=== PATIENT | female | born 1985 | race Two or more races ===

== ENCOUNTER 2018-06-11 12:16 | Emergency (ER) | payer MEDICAID ==
[~2018-06-11] VITALS: Ht 167.6 cm; Wt 65.7 kg
--- NOTE | 2018-06-11 14:10 | NUR ---
us in prog
--- NOTE | 2018-06-11 15:06 | NUR ---
US RESULTS AND POC REVIEWED BY ROB SANCHEZ WITH PT.
[2018-06-11 15:07] VITALS: BP 113/66
--- NOTE | 2018-06-11 15:29 | NUR ---
PT GIVEN DC INSTRUCTIONS AND SCRIPT. PT EDUCATED REGARDING KEFLEX RX. PT A&O, RESPS EVEN AND UNLABORED. PT AMB TO DC DESK WITH STEADY GAIT. NADN AT DC.
== END 2018-06-11 15:30 | disposition home or self-care (01) ==
LOC: ED 15:20
DX: I80.8 Phlebitis and thrombophlebitis of other sites (principal)
CPT/HCPCS: 99284

== ENCOUNTER 2018-07-09 18:21 | Emergency (ER) | payer MEDICAID ==
[~2018-07-09] VITALS: Ht 167.6 cm; Wt 65.2 kg
--- NOTE | 2018-07-09 18:43 | NUR ---
PATIENT PRESENTS TO ED TODAY FOR WEIGHT LOSS AND RT WRIST PAIN/LUMP. FAMILY AT BEDSIDE, CALL LIGHT WITHIN REACH. AWAITING MD ORDERS AT THIS TIME.
[2018-07-09] MEDS ORDERED: ACYC-57 PO (18:49)
[2018-07-09] MEDS ORDERED: OMEP10CA4 PO (18:49)
[2018-07-09] MEDS ORDERED: MULT-308 PO (18:50)
[2018-07-09 19:48] LABS: BASOPHILS # (AUTO) 0.03 x10^3/uL (0-0.1); BASOPHILS % (AUTO) 0 % (0-1); EOSINOPHILS # (AUTO) 0.21 x10^3/uL (0-0.4); EOSINOPHILS % (AUTO) 2 % (1-7); LYMPHOCYTES # (AUTO) 2.95 x10^3/uL (1-3.4); LYMPHOCYTES % (AUTO) 33 % (22-44); MD NO; MEAN CORPUSCULAR HEMOGLOBIN 28.5 pg (27.0-34.8); MEAN CORPUSCULAR HGB CONC 32.9 g/dL (32.4-35.8); MEAN CORPUSCULAR VOLUME 86.6 fL (80-100); MEAN PLATELET VOLUME 8.4 fL (7.4-10.4); MONOCYTES # (AUTO) 0.58 x10^3/uL (0.2-0.8); MONOCYTES % (AUTO) 7 % (2-9); NEUTROPHILS # (AUTO) 5.07 x10^3/uL (1.8-6.8); NEUTROPHILS % (AUTO) 57 % (42-75); PLATELET COUNT 360 x10^3/uL (130-400); RED BLOOD COUNT 4.73 x10^6/uL (3.82-5.3); RED CELL DISTRIBUTION WIDTH 13.4 % (9.6-15.2)
[2018-07-09 19:52] LABS: ANION GAP 12 mmol/L (5-15); CHLORIDE 111 mmol/L (98-107); CREATININE 0.85 mg/dL (0.55-1.02)
--- NOTE | 2018-07-09 19:58 | NUR ---
RESULTS BACK, CHART UP FOR RECHECK.
== END 2018-07-09 20:14 | disposition home or self-care (01) ==
LOC: ED 20:08
DX: R63.4 Abnormal weight loss (principal)
CPT/HCPCS: 36415; 80048; 85025; 99283

== ENCOUNTER 2018-08-06 17:46 | Emergency (ER) | payer MEDICAID ==
[~2018-08-06] VITALS: Ht 167.6 cm; Wt 67.9 kg
[~2018-08-06 17:46] MED LIST: ACYC-57 PO; MULT-308 PO; OMEP10CA4 PO
[2018-08-06 17:59] VITALS: BP 128/84
== END 2018-08-06 20:08 | disposition home or self-care (01) ==
LOC: ED 18:41
DX: L72.3 Sebaceous cyst (principal); N81.10 Cystocele, unspecified
CPT/HCPCS: 76857; 99284

== ENCOUNTER 2019-05-16 16:50 | Emergency (ER) | payer SELFPAY ==
[~2019-05-16] VITALS: Ht 167.6 cm; Wt 76.2 kg
[~2019-05-16 16:50] MED LIST changes: -OMEP10CA4 PO; +OMEP10CA5 PO
[2019-05-16 16:57] VITALS: BP 154/69
--- NOTE | 2019-05-16 17:05 | NUR ---
pa-c is evaluating in triage.
== END 2019-05-16 17:50 | disposition home or self-care (01) ==
LOC: ED 17:27
DX: K04.7 Periapical abscess without sinus (principal); K02.9 Dental caries, unspecified
CPT/HCPCS: 99283

== ENCOUNTER 2020-04-27 11:47 | Emergency (ER) | payer MEDICAID ==
[~2020-04-27] VITALS: Ht 167.6 cm; Wt 65.0 kg
--- NOTE | 2020-04-27 12:01 | NUR ---
EKG IN TRIAGE
--- NOTE | 2020-04-27 12:32 | NUR ---
PT IS A 34F COMPLAINING OF AN EPISODE OF DIZZINESS AROUND 10:30 THIS MORNING LASTING A COUPLE OF SECONDS. SHE DENIES SYNCOPE, N/V. THIS HAS HAPPENED TO HER ONCE YEARS AGO. SPOUSE AT BEDSIDE. BP, SP02 MONITORS IN PLACE. NADN. CALL LIGHT WITHIN REACH.
[2020-04-27 13:20] LABS: BASOPHILS % (AUTO) 1 % (0-1); EOSINOPHILS % (AUTO) 1 % (1-7); LYMPHOCYTES % (AUTO) 30 % (22-44); MEAN CORPUSCULAR HEMOGLOBIN 28.7 pg (27.0-34.8); MEAN CORPUSCULAR HGB CONC 33.4 g/dL (32.4-35.8); MEAN PLATELET VOLUME 8.1 fL (7.4-10.4); MONOCYTES % (AUTO) 4 % (2-9); NEUTROPHILS % (AUTO) 64 % (42-75); PLATELET COUNT 328 x10^3/uL (130-400); RED BLOOD COUNT 4.49 x10^6/uL (3.82-5.3); RED CELL DISTRIBUTION WIDTH 13.7 % (9.6-15.2)
[2020-04-27 13:23] VITALS: BP 105/63
[2020-04-27 13:23] LABS: MD NO
--- NOTE | 2020-04-27 13:23 | NUR ---
PT RESTING COMFORTABLY WATCHING TV. CALL LIGHT IN REACH. NADN, NO DIZZINESS NOTED.
[2020-04-27 13:32] LABS: ALBUMIN 3.6 g/dL (3.4-5.0); ANION GAP 5 mmol/L (5-15); CALCIUM 8.5 mg/dL (8.5-10.1); CHLORIDE 106 mmol/L (98-107)
[2020-04-27 13:37] LABS: CREATININE 0.88 mg/dL (0.55-1.02)
--- NOTE | 2020-04-27 13:50 | NUR ---
Patient/Caregiver given discharge instructions and they have confirmed that they understand the instructions. Patient ambulatory with steady gait.
== END 2020-04-27 13:51 | disposition home or self-care (01) ==
LOC: ED 13:45
DX: R42 Dizziness and giddiness (principal)
CPT/HCPCS: 36415; 80048; 82040; 84703; 85025; 93005; 99284

== ENCOUNTER 2020-05-17 11:12 | Emergency (ER) | payer MEDICAID ==
[~2020-05-17] VITALS: Ht 167.6 cm; Wt 66.0 kg
--- NOTE | 2020-05-17 11:31 | NUR ---
PT AMBULATED TO ROOM FROM TRIAGE. PT CO LOWER ABD PAIN/CRAMPING SINCE THIS MORNING. PT DENIES ANY CHANGES IN BM, PAINFUL URINATION, BLOOD IN URINE, FEVER, VOMITING OR VAGINAL BLEEDING.
[2020-05-17 11:52] LABS: BASOPHILS % (AUTO) 1 % (0-1); EOSINOPHILS % (AUTO) 1 % (1-7); LYMPHOCYTES % (AUTO) 28 % (22-44); MEAN CORPUSCULAR HEMOGLOBIN 29.2 pg (27.0-34.8); MEAN CORPUSCULAR HGB CONC 33.5 g/dL (32.4-35.8); MONOCYTES % (AUTO) 5 % (2-9); NEUTROPHILS % (AUTO) 65 % (42-75); PLATELET COUNT 361 x10^3/uL (130-400); RED BLOOD COUNT 4.42 x10^6/uL (3.82-5.3); RED CELL DISTRIBUTION WIDTH 13.8 % (9.6-15.2)
[2020-05-17 11:53] LABS: MD NO
[2020-05-17] MEDS ORDERED: ACETAMINOPHEN 325 MG TABLET PO ONE (12:00)
[2020-05-17 12:01] LABS: MICROSCOPIC NOT IND
[2020-05-17 12:01] LABS: ALBUMIN 3.8 g/dL (3.4-5.0); ANION GAP 4 mmol/L (5-15); CHLORIDE 109 mmol/L (98-107)
[2020-05-17] MEDS ORDERED: ACETAMINOPHEN 325 MG TABLET ONE (12:02)
[2020-05-17 12:19] VITALS: BP 121/67
--- NOTE | 2020-05-17 12:19 | NUR ---
PT RESTING COMFORTABLY IN BED. CALL LIGHT WITHIN REACH.
--- NOTE | 2020-05-17 13:17 | NUR ---
DISCHARGE INSTRUCTIONS REVIEWED WITH PT. ALL QUESTIONS ANSWERED AT THIS TIME
== END 2020-05-17 13:21 | disposition home or self-care (01) ==
LOC: ED 12:50
DX: O26.891 Other specified pregnancy related conditions, first trimester (principal); R10.2 Pelvic and perineal pain; Z3A.01 Less than 8 weeks gestation of pregnancy
CPT/HCPCS: 36415; 76830; 80048; 81003; 82040; 84702; 84703; 85025; 99284

== ENCOUNTER 2020-05-25 17:56 | Emergency (ER) | payer MEDICAID ==
[~2020-05-25] VITALS: Ht 167.6 cm; Wt 69.3 kg
[2020-05-25 18:41] VITALS: BP 93/56
== END 2020-05-25 19:49 | disposition home or self-care (01) ==
LOC: ED 19:05
DX: O26.891 Other specified pregnancy related conditions, first trimester (principal); R10.2 Pelvic and perineal pain; Z3A.01 Less than 8 weeks gestation of pregnancy
CPT/HCPCS: 36415; 76801; 84702; 99284

== ENCOUNTER 2020-06-05 09:58 | Emergency (ER) | payer MEDICAID ==
[~2020-06-05] VITALS: Ht 167.6 cm; Wt 69.1 kg
--- NOTE | 2020-06-05 10:33 | NUR ---
Pt arrived with complaints of upper abdominal cramping that has been occuring intermittently since 6am this morning. Pt denies discharge and bleeding, states that the cramping feels like period cramps. Connected to BP and O2 monitors, positioned for comfort, UA provided, AUBREYN, VSS.
[2020-06-05 12:00] VITALS: BP 104/58
[2020-06-05 12:36] LABS: BASOPHILS % (AUTO) 1 % (0-1); EOSINOPHILS % (AUTO) 1 % (1-7); LYMPHOCYTES % (AUTO) 28 % (22-44); MEAN CORPUSCULAR HEMOGLOBIN 28.4 pg (27.0-34.8); MEAN CORPUSCULAR HGB CONC 32.8 g/dL (32.4-35.8); MEAN PLATELET VOLUME 7.9 fL (7.4-10.4); MONOCYTES % (AUTO) 5 % (2-9); NEUTROPHILS % (AUTO) 66 % (42-75); PLATELET COUNT 353 x10^3/uL (130-400); RED BLOOD COUNT 4.06 x10^6/uL (3.82-5.3); RED CELL DISTRIBUTION WIDTH 13.5 % (9.6-15.2)
[2020-06-05 12:46] LABS: MD NO
[2020-06-05 12:51] LABS: ALANINE AMINOTRANSFERASE 19 U/L (12-78); ALBUMIN 3.3 g/dL (3.4-5.0); ANION GAP 5 mmol/L (5-15); CALCIUM 8.5 mg/dL (8.5-10.1); CHLORIDE 109 mmol/L (98-107); CREATININE 0.65 mg/dL (0.55-1.02)
[2020-06-05] MEDS ORDERED: ONDANSETRON ODT 4 MG PO ONE (13:00)
[2020-06-05] MEDS ORDERED: ONDANSETRON ODT 4 MG ONE (13:00)
[2020-06-05 13:08] LABS: ALKALINE PHOSPHATASE 42 U/L (45-117); BILIRUBIN,TOTAL 0.2 mg/dL (0.2-1.0); TOTAL PROTEIN 6.6 g/dL (6.4-8.2)
--- NOTE | 2020-06-05 13:30 | NUR ---
ERP TO BEDSIDE TO REVIEW POC- TEACH BACK SOMEWHAT SUCCESSFUL (NOT RETAINING) [employer] ATTEMPTED X 3 TO ASSURE PROVIDED WITH RESOURCES
== END 2020-06-05 13:34 | disposition home or self-care (01) ==
LOC: ED 11:53
DX: O26.891 Other specified pregnancy related conditions, first trimester (principal); R10.13 Epigastric pain; Z3A.08 8 weeks gestation of pregnancy
CPT/HCPCS: 36415; 76801; 80053; 83690; 84702; 85025; 99284; Q0162

== ENCOUNTER 2020-06-23 15:16 | Emergency (ER) | payer MEDICAID ==
[~2020-06-23] VITALS: Ht 167.6 cm; Wt 86.8 kg
[2020-06-23 16:10] LABS: BASOPHILS % (AUTO) 1 % (0-1); EOSINOPHILS % (AUTO) 1 % (1-7); LYMPHOCYTES % (AUTO) 35 % (22-44); MEAN CORPUSCULAR HEMOGLOBIN 28.1 pg (27.0-34.8); MEAN CORPUSCULAR HGB CONC 32.4 g/dL (32.4-35.8); MEAN PLATELET VOLUME 7.9 fL (7.4-10.4); MONOCYTES % (AUTO) 7 % (2-9); NEUTROPHILS % (AUTO) 57 % (42-75); PLATELET COUNT 368 x10^3/uL (130-400); RED BLOOD COUNT 4.42 x10^6/uL (3.82-5.3); RED CELL DISTRIBUTION WIDTH 13.6 % (9.6-15.2)
[2020-06-23 16:14] LABS: MD NO
[2020-06-23 16:20] LABS: ALANINE AMINOTRANSFERASE 21 U/L (12-78); ALBUMIN 3.8 g/dL (3.4-5.0); ANION GAP 5 mmol/L (5-15); CALCIUM 8.5 mg/dL (8.5-10.1); CHLORIDE 110 mmol/L (98-107); CREATININE 0.75 mg/dL (0.55-1.02)
[2020-06-23] MEDS ORDERED: SODIUM CHLORIDE 0.9% 1,000ML IVBOLUS ONE (16:30)
[2020-06-23 16:36] LABS: ALKALINE PHOSPHATASE 49 U/L (45-117); BILIRUBIN,TOTAL 0.2 mg/dL (0.2-1.0); TOTAL PROTEIN 7.6 g/dL (6.4-8.2)
--- NOTE | 2020-06-23 16:53 | NUR ---
PT BIB SELF VIA POV WITH DAUGHTER. PER PT SHE WAS SEEN AT [facility] FRIDAY, DX WITH MISCARRIAGE. PT STATES SHE HAS HAD DIZZINESS TODAY, AND SHE IS CONCERNED ABOUT HAVING RETAINED PRODUCTS. PER PT SHE HAS BEEN HAVING VAGINAL BLEEDING SINCE FRIDAY AND HAS GONE THROUGH THREE PADS/HR TODAY. PT RESTING IN [facility], MONITORING IN PLACE, PADMA AT THIS TIME, PT'S DAUGHTER AT BEDSIDE, PT MEDICATED PER DAISHA CROCKER.
[2020-06-23 17:04] LABS: MICROSCOPIC NOT IND
[2020-06-23] MEDS ORDERED: MISOPROSTOL 200 MCG TABLET PR ONE (18:30)
--- NOTE | 2020-06-23 19:29 | NUR ---
REQUESTED MEDS FROM PHARMACY.
[2020-06-23 19:52] VITALS: BP 111/78
== END 2020-06-23 19:56 | disposition home or self-care (01) ==
LOC: ED 15:40
DX: O03.4 Incomplete spontaneous abortion without complication (principal); Z32.01 Encounter for pregnancy test, result positive; R94.31 Abnormal electrocardiogram [ECG] [EKG]
CPT/HCPCS: 36415; 76801; 80053; 81003; 84702; 85025; 86901; 93005; 96360; 99285; J7030

== ENCOUNTER 2020-10-03 08:29 | Emergency (ER) | payer MEDICAID ==
[~2020-10-03] VITALS: Ht 165.1 cm; Wt 65.7 kg
--- NOTE | 2020-10-03 09:04 | NUR ---
DR HEWITT BEDSIDE
--- NOTE | 2020-10-03 09:06 | NUR ---
PT MISSED PERIOD. PT C/O DIZZINESS AND NAUSEA. PT DENIES VAGINAL BLEEDIG OR CRAMPING. PT WANTING TO CONFIRM PREGANCY AND MAKE SURE SHE IS OK.
--- NOTE | 2020-10-03 09:11 | NUR ---
PT URINE COLLECTED AND SENT TO LAB
[2020-10-03 09:28] LABS: MICROSCOPIC NOT IND
[2020-10-03 09:38] LABS: BASOPHILS % (AUTO) 0 % (0-1); EOSINOPHILS % (AUTO) 1 % (1-7); LYMPHOCYTES % (AUTO) 27 % (22-44); MEAN CORPUSCULAR HEMOGLOBIN 28.8 pg (27.0-34.8); MEAN CORPUSCULAR HGB CONC 33.3 g/dL (32.4-35.8); MEAN PLATELET VOLUME 8.1 fL (7.4-10.4); MONOCYTES % (AUTO) 6 % (2-9); NEUTROPHILS % (AUTO) 66 % (42-75); PLATELET COUNT 326 x10^3/uL (130-400); RED BLOOD COUNT 4.38 x10^6/uL (3.82-5.3); RED CELL DISTRIBUTION WIDTH 14.2 % (9.6-15.2)
[2020-10-03 09:49] LABS: ALBUMIN 3.7 g/dL (3.4-5.0); ANION GAP 10 mmol/L (5-15); CALCIUM 8.8 mg/dL (8.5-10.1); CHLORIDE 108 mmol/L (98-107); CREATININE 0.72 mg/dL (0.55-1.02)
[2020-10-03] MEDS ORDERED: ONDANSETRON ODT 4 MG ONE (11:15)
[2020-10-03 11:49] VITALS: BP 117/73
--- NOTE | 2020-10-03 11:50 | NUR ---
PT REC'VD DISCHARGE INSTRUCTIONS AND EDUCATION. PT HAD NO FURTHER QUESTIONS.
--- NOTE | 2020-10-03 11:53 | NUR ---
PT AMBULATED TO MT AREA, STEADY GAIT.
[2020-10-03] MEDS ORDERED: ONDANSETRON ODT 4 MG PO ONE (12:00)
== END 2020-10-03 12:03 | disposition home or self-care (01) ==
LOC: ED 09:31
DX: O46.91 Antepartum hemorrhage, unspecified, first trimester (principal); R11.2 Nausea with vomiting, unspecified; R42 Dizziness and giddiness; Z3A.01 Less than 8 weeks gestation of pregnancy
CPT/HCPCS: 36415; 76801; 80048; 81003; 82040; 84702; 85025; 99284; Q0162

== ENCOUNTER 2020-10-18 10:40 | Emergency (ER) | payer MEDICAID ==
--- NOTE | 2020-10-18 11:10 | NUR ---
ATTEMPT TO CALL PT FROM LOBBY TO TRIAGE. PT NIL X 1.
--- NOTE | 2020-10-18 11:21 | NUR ---
NO ANSWER TO TRIAGE.
--- NOTE | 2020-10-18 11:23 | NUR ---
BALE STACKER: PT LEFT AMA, PAPER NATHALIA
== END 2020-10-18 11:25 | disposition left against medical advice (07) ==
LOC: ED 11:20
DX: R10.9 Unspecified abdominal pain (principal); Z53.21 Procedure and treatment not carried out due to patient leaving prior to being seen by health care provider

== ENCOUNTER 2020-10-19 09:42 | Emergency (ER) | payer MEDICAID ==
[~2020-10-19] VITALS: Ht 167.6 cm; Wt 65.9 kg
[2020-10-19 10:04] VITALS: BP 117/65
[2020-10-19 10:45] LABS: BASOPHILS % (AUTO) 1 % (0-1); EOSINOPHILS % (AUTO) 2 % (1-7); LYMPHOCYTES % (AUTO) 29 % (22-44); MEAN CORPUSCULAR HEMOGLOBIN 28.6 pg (27.0-34.8); MEAN CORPUSCULAR HGB CONC 32.9 g/dL (32.4-35.8); MEAN PLATELET VOLUME 8.1 fL (7.4-10.4); MONOCYTES % (AUTO) 8 % (2-9); NEUTROPHILS % (AUTO) 61 % (42-75); PLATELET COUNT 360 x10^3/uL (130-400); RED BLOOD COUNT 4.41 x10^6/uL (3.82-5.3); RED CELL DISTRIBUTION WIDTH 13.8 % (9.6-15.2)
[2020-10-19 10:50] LABS: ALANINE AMINOTRANSFERASE 19 U/L (12-78); ALBUMIN 3.8 g/dL (3.4-5.0); ANION GAP 9 mmol/L (5-15); CALCIUM 9.1 mg/dL (8.5-10.1); CHLORIDE 105 mmol/L (98-107); CREATININE 0.77 mg/dL (0.55-1.02)
[2020-10-19 11:07] LABS: ALKALINE PHOSPHATASE 52 U/L (45-117); BILIRUBIN,TOTAL 0.3 mg/dL (0.2-1.0); TOTAL PROTEIN 7.6 g/dL (6.4-8.2)
--- NOTE | 2020-10-19 12:22 | NUR ---
PT REQUESTING TO LEAVE. PT UNDERSTOOD THE CONSEQUENCES OF LEAVING WITHOUT FINISHING BEING ASSESSED. PT SIGNED AMA AND DEPARTED. PT ADVISED TO COME BACK TO THE ER IF SHE STARTS TO FEEL WORSE.
== END 2020-10-19 12:25 | disposition left against medical advice (07) ==
LOC: ED 12:00
DX: O26.891 Other specified pregnancy related conditions, first trimester (principal); R10.9 Unspecified abdominal pain; R42 Dizziness and giddiness; Z3A.01 Less than 8 weeks gestation of pregnancy
CPT/HCPCS: 36415; 76801; 80053; 84702; 85025; 99284